=== PATIENT | female | born 1970 | race Caucasian/White ===

== ENCOUNTER → 2018-05-03 | Outpatient (CLI) | payer OTHER | LOC: COL.RAD 10:21 | DX: M17.11 Unilateral primary osteoarthritis, right knee (principal) ==

== ENCOUNTER → 2019-02-18 | Outpatient (CLI) | payer SELFPAY | LOC: COL.RAD 10:25 | DX: M51.36 Other intervertebral disc degeneration, lumbar region (principal) ==

== ENCOUNTER → 2020-10-25 | Outpatient (CLI) | payer OTHER ==
[~2020-10-25] MED LIST: CHANTIX 1MG1 MG PO; FLONASE SENSIM9.9 ML NS; HCTZ12.5TAB PO; LIPITOR 10MG10 MG PO; MOTRIN 800800 MG/TAB PO; NATURAL ODORLE400 MG PO; PHARMASSURE L-500 MG PO; PRINIVIL5 MG PO; PROVENTIL0.09 MG/A1 IH; TYLENOL 500MG500 MG PO; VITAMIN C500 MG PO; VITAMIN D31000 IU PO; WELLBUTRIN XL150 MG PO
== END ==
LOC: COL.RAD 08:49
DX: M47.812 Spondylosis without myelopathy or radiculopathy, cervical region (principal); M47.816 Spondylosis without myelopathy or radiculopathy, lumbar region

== ENCOUNTER → 2020-11-16 | Outpatient (CLI) | payer MEDICAID | LOC: COL.RAD 11:53 | DX: M51.36 Other intervertebral disc degeneration, lumbar region (principal); M47.816 Spondylosis without myelopathy or radiculopathy, lumbar region; M48.061 Spinal stenosis, lumbar region without neurogenic claudication; M47.817 Spondylosis without myelopathy or radiculopathy, lumbosacral region ==

== ENCOUNTER → 2020-12-12 | Outpatient (CLI) | payer MEDICAID | LOC: MHCPAIN 14:25 | DX: M47.817 Spondylosis without myelopathy or radiculopathy, lumbosacral region (principal); M54.5 Low back pain; M53.3 Sacrococcygeal disorders, not elsewhere classified; G89.29 Other chronic pain | CPT/HCPCS: G0463 ==

== ENCOUNTER 2021-01-17 09:12 | Day surgery (SDC) | payer MEDICAID ==
[~2021-01-17] VITALS: Ht 165.1 cm; Wt 107.3 kg
[2021-01-17] MEDS ORDERED: PRINIVIL5 MG PO (09:47)
[2021-01-17] MEDS ORDERED: HCTZ12.5TAB PO (09:47)
[2021-01-17] MEDS ORDERED: FLONASE SENSIM9.9 ML NS (09:48)
[2021-01-17] MEDS ORDERED: PROVENTIL0.09 MG/A1 IH (09:48)
[2021-01-17] MEDS ORDERED: WELLBUTRIN XL150 MG PO (09:49)
[2021-01-17] MEDS ORDERED: CHANTIX 1MG1 MG PO (09:49)
[2021-01-17] MEDS ORDERED: LIPITOR 10MG10 MG PO (09:49)
[2021-01-17] MEDS ORDERED: VITAMIN D31000 IU PO (09:50)
[2021-01-17] MEDS ORDERED: PHARMASSURE L-500 MG PO (09:51)
[2021-01-17] MEDS ORDERED: NATURAL ODORLE400 MG PO (09:51)
[2021-01-17] MEDS ORDERED: VITAMIN C500 MG PO (09:51)
[2021-01-17] MEDS ORDERED: MOTRIN 800800 MG/TAB PO (09:52)
[2021-01-17] MEDS ORDERED: TYLENOL 500MG500 MG PO (09:53)
[2021-01-17 09:55] VITALS: BP 118/78; PULSE 79; TEMP 97.4
[2021-01-17 11:10] VITALS: BP 117/79; PULSE 81; TEMP 97.3
[2021-01-17 11:25] VITALS: BP 123/79; PULSE 80
[2021-01-17 11:40] VITALS: BP 116/70; PULSE 84
--- NOTE | 2021-01-17 12:02 | NUR ---
1110 PATIENT ARRIVES TO [facility] [place] 6 VIA CART. PATIENT AMBULATED TO CHAIR WITH 1:1 ASSIST. VSS. WARM BLANKET GIVEN FOR COMFORT. REPORT AND CARE OF PATIENT RECEIVED FROM COLIN CAT. 1115 DR. MARTIN SPEAKING WITH PATIENT REGARDING PROCEDURE. PATIENT TAKING PEANUT BUTTER AND CRACKERS, ORANGE AND WATER PO. 1125 PATIENT TOLERATES PO WELL. REPORTS A MCDUFFIE. TAKING COFFEE PO TO HELP WITH MCDUFFIE. 1140 IV D/C'D. CATH INTACT. VERBAL AND WRITTEN INSTRUCTIONS GIVEN TO PATIENT. PATIENT VERBALIZED UNDERSTANDING. 1154 PATIENT D/C'D TO POV VIA W/C WITH A FRIEND.
== END 2021-01-17 11:54 | disposition home or self-care (01) ==
LOC: SDCO 09:12
DX: Z12.11 Encounter for screening for malignant neoplasm of colon (principal); D12.3 Benign neoplasm of transverse colon; D12.5 Benign neoplasm of sigmoid colon; K63.5 Polyp of colon; K51.40 Inflammatory polyps of colon without complications; I10 Essential (primary) hypertension; E78.5 Hyperlipidemia, unspecified; Z20.822 Contact with and (suspected) exposure to COVID-19; J45.909 Unspecified asthma, uncomplicated; E66.01 Morbid (severe) obesity due to excess calories; G89.29 Other chronic pain; M17.0 Bilateral primary osteoarthritis of knee; F17.210 Nicotine dependence, cigarettes, uncomplicated; M54.5 Low back pain; Z68.41 Body mass index [BMI] 40.0-44.9, adult; Z79.899 Other long term (current) drug therapy
CPT/HCPCS: J2704; J7120

== ENCOUNTER → 2021-03-13 | Outpatient (CLI) | payer MEDICAID | LOC: MHCPAIN 14:49 | DX: M47.817 Spondylosis without myelopathy or radiculopathy, lumbosacral region (principal); M53.3 Sacrococcygeal disorders, not elsewhere classified; M54.16 Radiculopathy, lumbar region | CPT/HCPCS: G0463 ==

== ENCOUNTER 2021-03-15 14:15 | Outpatient (RCR) | payer MEDICAID | END 2021-03-28 | disposition home or self-care (01) | LOC: WSPT | DX: M47.896 Other spondylosis, lumbar region (principal) ==

== ENCOUNTER → 2021-05-23 | Outpatient (CLI) | payer MEDICAID | LOC: MHCPAIN 03-18 11:57 | DX: M47.816 Spondylosis without myelopathy or radiculopathy, lumbar region (principal); M54.16 Radiculopathy, lumbar region; M53.3 Sacrococcygeal disorders, not elsewhere classified; G89.29 Other chronic pain | CPT/HCPCS: G0463; J1100; Q9967 ==

== ENCOUNTER → 2021-06-04 | Outpatient (CLI) | payer MEDICAID | LOC: MHCPAIN 14:45 | DX: M47.817 Spondylosis without myelopathy or radiculopathy, lumbosacral region (principal); M54.50 Low back pain, unspecified; M53.3 Sacrococcygeal disorders, not elsewhere classified | CPT/HCPCS: G0463 ==

== ENCOUNTER → 2021-06-25 | Outpatient (CLI) | payer MEDICAID | LOC: MHCPAIN 12:21 | DX: M47.817 Spondylosis without myelopathy or radiculopathy, lumbosacral region (principal); M54.50 Low back pain, unspecified; M53.3 Sacrococcygeal disorders, not elsewhere classified ==

== ENCOUNTER → 2021-08-26 | Outpatient (CLI) | payer MEDICAID | LOC: MHCPAIN 10:03 | DX: M47.817 Spondylosis without myelopathy or radiculopathy, lumbosacral region (principal); M54.50 Low back pain, unspecified; M53.3 Sacrococcygeal disorders, not elsewhere classified | CPT/HCPCS: G0463 ==

== ENCOUNTER → 2021-09-16 | Outpatient (CLI) | payer MEDICAID | LOC: MHCPAIN 11:51 | DX: M47.817 Spondylosis without myelopathy or radiculopathy, lumbosacral region (principal); M54.50 Low back pain, unspecified; M53.3 Sacrococcygeal disorders, not elsewhere classified | CPT/HCPCS: G0463; J1100; J2250; J3010 ==

== ENCOUNTER → 2021-09-19 | Outpatient (CLI) | payer MEDICAID | LOC: MHCPAIN 12:10 | DX: M47.817 Spondylosis without myelopathy or radiculopathy, lumbosacral region (principal); M54.50 Low back pain, unspecified; M53.3 Sacrococcygeal disorders, not elsewhere classified | CPT/HCPCS: J1100; J2250; J3010 ==

== ENCOUNTER → 2021-11-19 | Outpatient (CLI) | payer MEDICAID | LOC: MHCPAIN 12:55 | DX: M47.817 Spondylosis without myelopathy or radiculopathy, lumbosacral region (principal); M53.3 Sacrococcygeal disorders, not elsewhere classified; M54.50 Low back pain, unspecified | CPT/HCPCS: G0463 ==

== ENCOUNTER → 2021-11-28 | Outpatient (CLI) | payer MEDICAID | LOC: MHCPAIN 13:33 | DX: M53.3 Sacrococcygeal disorders, not elsewhere classified (principal); M47.817 Spondylosis without myelopathy or radiculopathy, lumbosacral region | CPT/HCPCS: G0260; J1040; Q9967 ==

== ENCOUNTER → 2022-01-09 | Outpatient (CLI) | payer MEDICAID | LOC: MC.RAD 14:18 | DX: Z12.31 Encounter for screening mammogram for malignant neoplasm of breast (principal) ==

== ENCOUNTER → 2024-03-18 | Outpatient (CLI) | payer OTHER, MEDICAID | LOC: COL.RAD 13:53 | DX: Z12.2 Encounter for screening for malignant neoplasm of respiratory organs (principal); R91.1 Solitary pulmonary nodule; Z87.891 Personal history of nicotine dependence ==

== ENCOUNTER 2024-04-28 05:52 | Day surgery (SDC) | payer OTHER, MEDICAID ==
[~2024-04-28] VITALS: Ht 167.6 cm; Wt 111.5 kg
[~2024-04-28 05:52] MED LIST changes: +LR 1,000 ML IV SCH; +Ondansetron 4 MG/2 ML VIAL IV PRN
[2024-04-28 06:23] VITALS: BP 130/88; PULSE 87; TEMP 97
[2024-04-28] MEDS ORDERED: FLONASEALLERGY NS (06:48)
[2024-04-28] MEDS ORDERED: PEPCID AC20 MG PO (06:51)
[2024-04-28] MEDS ORDERED: AMITRIPTYLINE H50 M1 PO (06:51)
[2024-04-28] MEDS ORDERED: ATARAX 25MG25 MG/TAB PO (06:52)
[2024-04-28] MEDS ORDERED: STRATTERA100 MG PO (06:53)
[2024-04-28] MEDS ORDERED: NASONEX SPRAY17 GM NS (06:53)
[2024-04-28] MEDS ORDERED: ADIPEX-P37.5 MG PO (06:54)
[2024-04-28] MEDS ORDERED: WIXELA 100-501 EACH IH (06:55)
[2024-04-28] MEDS ORDERED: TESSALON PERLE200 MG PO (06:55)
[2024-04-28] MEDS ORDERED: fentaNYL 50 MCG/ML 2 ML VIAL ONE (06:57)
[2024-04-28] MEDS ORDERED: Lidocaine PF 2% (20 MG/ML) 5 ML VIAL ONE (06:57)
[2024-04-28 08:03] VITALS: BP 116/78; PULSE 84; TEMP 97.1
[2024-04-28 08:18] VITALS: BP 109/78; PULSE 84
--- NOTE | 2024-04-28 08:33 | NUR ---
0803 RETURNS TO ROOM 1 PER CART. AWAKE, ALERT. RESP UNLABORED. AMBULATES TO RECLINER WITH STANDBY ASSIST. DENIES NAUSEA OR ABD PAIN. VITAL SIGNS OBTAINED. DR. MARTIN HERE TO VISIT WITH PATIENT 0815 TOLERATES PO SODA AND MUFFIN WITHOUT NAUSEA. DISCHARGE INSTRUCTIONS REVIEWED. PATIENT VERBALIZES UNDERSTANDING. COPY PROVIDED IN DISCHARGE FOLDER. 0850 DRESSES SELF
== END 2024-04-28 08:33 | disposition home or self-care (01) ==
LOC: SDCO 05:52
DX: Z12.11 Encounter for screening for malignant neoplasm of colon (principal); K63.5 Polyp of colon; K62.1 Rectal polyp; E66.813 Obesity, class 3; Z68.39 Body mass index [BMI] 39.0-39.9, adult; Z87.891 Personal history of nicotine dependence
CPT/HCPCS: J2704; J3010; J7120

== ENCOUNTER → 2024-05-09 | Outpatient (CLI) | payer OTHER, MEDICAID ==
[~2024-05-09] MED LIST changes: +ADIPEX-P37.5 MG PO; +AMITRIPTYLINE H50 M1 PO; +ATARAX 25MG25 MG/TAB PO; +FLONASEALLERGY NS; -LR 1,000 ML IV SCH; +NASONEX SPRAY17 GM NS; -Ondansetron 4 MG/2 ML VIAL IV PRN; +PEPCID AC20 MG PO; +STRATTERA100 MG PO; +TESSALON PERLE200 MG PO; +WIXELA 100-501 EACH IH
== END ==
LOC: MC.RAD 14:11
DX: Z12.31 Encounter for screening mammogram for malignant neoplasm of breast (principal)